=== PATIENT | female | born 1965 | race Caucasian/White ===

== ENCOUNTER 2017-06-21 05:39 | Day surgery (SDC) | payer MEDICAID ==
[2017-06-18 14:18] LABS: BASOPHILS # (AUTO) 0.1 X10'3 (0-0.2); BASOPHILS % (AUTO) 0.6 % (0-1); EOSINOPHILS # (AUTO) 0.1 X10'3 (0-0.9); EOSINOPHILS % (AUTO) 0.8 % (0-6); LYMPHOCYTES # (AUTO) 1.8 X10'3 (1.1-4.8); LYMPHOCYTES % (AUTO) 20.6 % (21-51); MEAN CORPUSCULAR HEMOGLOBIN 31.4 PG (27.0-31.0); MEAN CORPUSCULAR HGB CONC 34.3 % (33.0-36.5); MEAN CORPUSCULAR VOLUME 91.8 FL (78-98); MEAN PLATELET VOLUME 8.5 FL (7.4-10.4); MONOCYTES # (AUTO) 0.5 X10'3 (0-0.9); NEUTROPHILS # (AUTO) 6.1 X10'3 (1.8-7.7); PRE OP HEMATOCRIT 41.4 % (35.0-45.0); PRE OP HEMOGLOBIN 14.2 g/dL (12.0-16.0); PRE OP PLATELET COUNT 310 X10'3 (140-440); RED BLOOD COUNT 4.51 X10'6 (4.20-5.60); RED CELL DISTRIBUTION WIDTH 13.1 % (11.5-14.5)
[2017-06-18 14:28] LABS: PRE OP INR 0.9 INR; PRE OP PROTIME 9.5 SECONDS (9.0-12.0)
[2017-06-18 14:33] LABS: ALBUMIN 3.8 G/DL (3.4-5.0); ALBUMIN/GLOBULIN RATIO 0.9 (1.1-1.5); ALKALINE PHOSPHATASE 61 IU/L (46-116); BLOOD UREA NITROGEN 14 MG/DL (7-18); BUN/CREATININE RATIO 11.1 (6.6-38.0); CALCIUM 9.6 MG/DL (8.5-10.1); CHLORIDE 103 MMOL/L (99-107); CREATININE 1.26 MG/DL (0.40-0.90); PRE OP ALT 33 U/L (30-65); PRE OP ANION GAP 7 (8-16); PRE OP AST 20 U/L (10-37); PRE OP BILIRUB, TOTAL 0.4 MG/DL (0.0-1.0); PRE OP GLUCOSE 107 MG/DL (70-104); PRE OP POTASSIUM 4.2 MMOL/L (3.4-5.1); PRE OP SODIUM 139 MMOL/L (135-145); TOTAL CARBON DIOXIDE 29.5 MMOL/L (24-32); TOTAL PROTEIN 8.2 G/DL (6.4-8.2); eGFR 45 ML/MIN
[~2017-06-21] VITALS: Ht 170.2 cm; Wt 102.1 kg
[~2017-06-21 05:39] MED LIST: ALBU8.5H8 INH; AMLO5TAB4 PO; ASPI-611 PO; ATOR80TA13 PO; BUSP5TAB3 PO; CHOL10002 PO; CLOP75TA15 PO; DOCUMENT DATE & TIME OF BETA-BLOCKER PO ONE; DULO-31 PO; GABA-347 PO; GLIM1TAB46 PO; LOP25T PO; LOSA25TA96 PO; METF500T7 PO; OSC500T PO; albuterol 2.5 MG/3 ML nebule NEB ONE; cefazolin/dext.iso 2gm/50ml 50 ML IV ONE; famotidine 20mg tablet PO ONE; ringers solution, lacted 1,000 ML IV SCH
[2017-06-21] MEDS ORDERED: LIDOcaine 1% (10mg/ml) 2ml vial ONE (06:01)
[2017-06-21 06:24] VITALS: BP 144/86
[2017-06-21] MEDS ORDERED: BUPIVAcaine/PF 2.5 mg/ml (0.25%) 30ml vial ONE ×2 (06:56→08:37)
[2017-06-21] MEDS ORDERED: LIDOcaine 0.5% (5mg/ml) 50ml vial ONE (08:03)
[2017-06-21] MEDS ORDERED: fentaNYL/PF 50MCG/1 ML 2ML syringe ONE (08:05)
[2017-06-21] MEDS ORDERED: midazolam 2 mg/2 ml injection ONE ×2 (08:06→08:11)
[2017-06-21] MEDS ORDERED: propofol inj 20 ML IV ONE (08:42)
[2017-06-21 08:45] VITALS: BP 125/84
[2017-06-21] MEDS ORDERED: ringers solution, lacted 1,000 ML IV SCH (08:47)
[2017-06-21] MEDS ORDERED: ondansetron/PF 4mg/2ml inj IV PRN (08:50)
[2017-06-21] MEDS ORDERED: morphine 4 MG/ML inj SYRINge IV PRN ×2 (08:50)
[2017-06-21] MEDS ORDERED: meperidine/PF 50mg/ml syringe IV PRN ×3 (08:50)
[2017-06-21] MEDS ORDERED: proCHLORperazine 10 MG/2 ml inj IV PRN (08:50)
[2017-06-21 08:55] VITALS: BP 126/79
[2017-06-21 09:05] VITALS: BP 121/77
[2017-06-21 09:15] VITALS: BP 119/78
== END 2017-06-21 09:15 | disposition home or self-care (01) ==
LOC: PAS 05:39
PROVIDERS: ATTEND Orthopaedic Surgery Hand Surgery
DX: G56.01 Carpal tunnel syndrome, right upper limb (principal); G56.21 Lesion of ulnar nerve, right upper limb; F17.210 Nicotine dependence, cigarettes, uncomplicated; G47.33 Obstructive sleep apnea (adult) (pediatric); I48.91 Unspecified atrial fibrillation; I10 Essential (primary) hypertension; I25.2 Old myocardial infarction; F41.9 Anxiety disorder, unspecified; F32.9 Major depressive disorder, single episode, unspecified; E11.9 Type 2 diabetes mellitus without complications; K21.9 Gastro-esophageal reflux disease without esophagitis; M79.7 Fibromyalgia; I25.10 Atherosclerotic heart disease of native coronary artery without angina pectoris; E66.9 Obesity, unspecified; E78.5 Hyperlipidemia, unspecified; J44.9 Chronic obstructive pulmonary disease, unspecified; Z79.82 Long term (current) use of aspirin; Z79.84 Long term (current) use of oral hypoglycemic drugs; Z90.710 Acquired absence of both cervix and uterus; Z95.5 Presence of coronary angioplasty implant and graft; Z88.6 Allergy status to analgesic agent; Z88.5 Allergy status to narcotic agent; Z86.73 Personal history of transient ischemic attack (TIA), and cerebral infarction without residual deficits; Z72.89 Other problems related to lifestyle; Z90.49 Acquired absence of other specified parts of digestive tract; Z90.711 Acquired absence of uterus with remaining cervical stump; Z68.35 Body mass index [BMI] 35.0-35.9, adult; Z79.899 Other long term (current) drug therapy; Z98.890 Other specified postprocedural states
CPT/HCPCS: 36415; 64718; 64721; 80053; 82948; 85025; 85610; 85730; 93005; 94640; A6222; A6449; J0690; J2001; J2250; J2704; J3010; J3490; J7120; A7000

== ENCOUNTER 2017-09-13 06:39 | Day surgery (SDC) | payer MEDICAID ==
[2017-09-10 10:59] LABS: BASOPHILS % (AUTO) 0.3 % (0-1); EOSINOPHILS # (AUTO) 0.2 X10'3 (0-0.9); EOSINOPHILS % (AUTO) 2.2 % (0-6); LYMPHOCYTES # (AUTO) 2.6 X10'3 (1.1-4.8); LYMPHOCYTES % (AUTO) 25.6 % (21-51); MEAN CORPUSCULAR HEMOGLOBIN 31.2 PG (27.0-31.0); MEAN CORPUSCULAR HGB CONC 33.3 % (33.0-36.5); MEAN CORPUSCULAR VOLUME 93.7 FL (78-98); MONOCYTES # (AUTO) 0.5 X10'3 (0-0.9); MONOCYTES % (AUTO) 4.6 % (2-12); NEUTROPHILS # (AUTO) 6.8 X10'3 (1.8-7.7); NEUTROPHILS % (AUTO) 67.3 % (42-75); PRE OP HEMATOCRIT 44.6 % (35.0-45.0); PRE OP HEMOGLOBIN 14.8 g/dL (12.0-16.0); PRE OP PLATELET COUNT 338 X10'3 (140-440); RED BLOOD COUNT 4.76 X10'6 (4.20-5.60)
[2017-09-10 11:15] LABS: ALBUMIN 3.6 G/DL (3.4-5.0); ALBUMIN/GLOBULIN RATIO 0.8 (1.1-1.5); ALKALINE PHOSPHATASE 64 IU/L (46-116); BLOOD UREA NITROGEN 18 MG/DL (7-18); BUN/CREATININE RATIO 12.8 (6.6-38.0); CALCIUM 9.5 MG/DL (8.5-10.1); CHLORIDE 103 MMOL/L (99-107); CREATININE 1.41 MG/DL (0.40-0.90); PRE OP ALT 29 U/L (30-65); PRE OP ANION GAP 7 (8-16); PRE OP AST 14 U/L (10-37); PRE OP BILIRUB, TOTAL 0.3 MG/DL (0.0-1.0); PRE OP GLUCOSE 134 MG/DL (70-104); PRE OP POTASSIUM 4.4 MMOL/L (3.4-5.1); PRE OP SODIUM 140 MMOL/L (135-145); TOTAL CARBON DIOXIDE 30.2 MMOL/L (24-32); TOTAL PROTEIN 8.2 G/DL (6.4-8.2); eGFR 39 ML/MIN
[~2017-09-13] VITALS: Ht 167.6 cm; Wt 102.1 kg
[~2017-09-13 06:39] MED LIST changes: +AMLO5TAB PO; -AMLO5TAB4 PO; +BUSP10TA10 PO; -BUSP5TAB3 PO; -CLOP75TA15 PO; +CLOP75TA33 PO; -GABA-347 PO; +GABA300C PO; +TOPI100T18 PO; -albuterol 2.5 MG/3 ML nebule NEB ONE; +ceFAZolin inj. 2,000 MG in dextrose 5%-water 100 ML IV ONE; -cefazolin/dext.iso 2gm/50ml 50 ML IV ONE
[2017-09-13 06:40] VITALS: BP 150/86
[2017-09-13] MEDS ORDERED: LIDOcaine 1% (10mg/ml) 2ml vial ONE (06:56)
[2017-09-13] MEDS ORDERED: albuterol 2.5 MG/3 ML nebule NEB ONE (07:35)
[2017-09-13] MEDS ORDERED: ROPIVAcaine 0.5% (5mg/ml) 30ml vial ONE (08:24)
[2017-09-13] MEDS ORDERED: LIDOcaine 0.5% (5mg/ml) 50ml vial ONE (08:28)
[2017-09-13] MEDS ORDERED: MIDAZolam 1mg/ml 10ml vial ONE (08:33)
[2017-09-13] MEDS ORDERED: sevoflurane 250ml liquid IH ONE (09:10)
[2017-09-13] MEDS ORDERED: fentaNYL/PF 50MCG/1 ML 2ML syringe ONE (09:36)
[2017-09-13] MEDS ORDERED: rocuronium 10mg/ml inj IV ONE (09:46)
[2017-09-13] MEDS ORDERED: propofol inj 20 ML IV ONE (09:46)
[2017-09-13] MEDS ORDERED: glycopyrrolate 0.2mg/ml inj ONE (09:47)
[2017-09-13] MEDS ORDERED: neostigmine methylsulfate 1 MG/ML 10ml vial ONE (09:47)
[2017-09-13] MEDS ORDERED: ondansetron/PF 4mg/2ml inj ONE (09:54)
[2017-09-13 10:05] VITALS: BP 119/89
[2017-09-13 10:15] VITALS: BP 117/74
[2017-09-13 10:25] VITALS: BP 112/67
[2017-09-13] MEDS ORDERED: ringers solution, lacted 1,000 ML IV ONE (10:28)
[2017-09-13] MEDS ORDERED: hydrALAZINE 20mg/ml inj. IV PRN (10:30)
[2017-09-13] MEDS ORDERED: labetalol 20mg/4ml (5mg/ml) syringe IV PRN (10:30)
[2017-09-13] MEDS ORDERED: morphine 4 MG/ML inj SYRINge IV PRN ×2 (10:30)
[2017-09-13] MEDS ORDERED: ondansetron/PF 4mg/2ml inj IV PRN (10:30)
[2017-09-13] MEDS ORDERED: meperidine/PF 25mg/ml syringe IV PRN ×3 (10:30)
[2017-09-13 10:35] VITALS: BP 110/55
[2017-09-13 10:45] VITALS: BP 115/64
== END 2017-09-13 10:55 | disposition home or self-care (01) ==
LOC: PAS 06:39
PROVIDERS: ATTEND Orthopaedic Surgery Hand Surgery
DX: G56.02 Carpal tunnel syndrome, left upper limb (principal); G56.22 Lesion of ulnar nerve, left upper limb; J44.9 Chronic obstructive pulmonary disease, unspecified; G47.33 Obstructive sleep apnea (adult) (pediatric); I25.2 Old myocardial infarction; I49.8 Other specified cardiac arrhythmias; I25.10 Atherosclerotic heart disease of native coronary artery without angina pectoris; E66.9 Obesity, unspecified; E78.5 Hyperlipidemia, unspecified; F17.210 Nicotine dependence, cigarettes, uncomplicated; M79.7 Fibromyalgia; I12.9 Hypertensive chronic kidney disease with stage 1 through stage 4 chronic kidney disease, or unspecified chronic kidney disease; N18.9 Chronic kidney disease, unspecified; E11.22 Type 2 diabetes mellitus with diabetic chronic kidney disease; F32.9 Major depressive disorder, single episode, unspecified; F41.9 Anxiety disorder, unspecified; Z86.74 Personal history of sudden cardiac arrest; Z95.5 Presence of coronary angioplasty implant and graft; Z86.73 Personal history of transient ischemic attack (TIA), and cerebral infarction without residual deficits; Z87.11 Personal history of peptic ulcer disease; Z90.49 Acquired absence of other specified parts of digestive tract; Z79.82 Long term (current) use of aspirin; Z79.84 Long term (current) use of oral hypoglycemic drugs; Z98.2 Presence of cerebrospinal fluid drainage device; Z88.5 Allergy status to narcotic agent; Z88.6 Allergy status to analgesic agent; Z72.89 Other problems related to lifestyle; Z90.711 Acquired absence of uterus with remaining cervical stump; Z98.890 Other specified postprocedural states; Z79.899 Other long term (current) drug therapy; Z68.36 Body mass index [BMI] 36.0-36.9, adult
CPT/HCPCS: 36415; 64718; 64721; 80053; 82948; 85025; 93005; 94640; 94760; A6222; A6449; J0690; J2001; J2250; J2405; J2704; J2710; J2795; J3010; J3490; J7060; J7120

== ENCOUNTER 2019-02-16 14:16 | Emergency (ER) | payer MEDICAID ==
[~2019-02-16] VITALS: Ht 167.6 cm; Wt 94.1 kg
[~2019-02-16 14:16] MED LIST changes: -DOCUMENT DATE & TIME OF BETA-BLOCKER PO ONE; +GLIM1TAB3 PO; -GLIM1TAB46 PO; +METF500T20 PO; -METF500T7 PO; +TOP100T PO; -TOPI100T18 PO; -ceFAZolin inj. 2,000 MG in dextrose 5%-water 100 ML IV ONE; -famotidine 20mg tablet PO ONE; -ringers solution, lacted 1,000 ML IV SCH
[2019-02-16 14:57] LABS: BASOPHILS # (AUTO) 0.1 X10'3 (0-0.2); BASOPHILS % (AUTO) 0.7 % (0-1); EOSINOPHILS # (AUTO) 0.4 X10'3 (0-0.9); HEMATOCRIT 42.8 % (35.0-45.0); HEMOGLOBIN 14.4 g/dl (12.0-16.0); LYMPHOCYTES # (AUTO) 3.2 X10'3 (1.1-4.8); LYMPHOCYTES % (AUTO) 37.7 % (21-51); MEAN CORPUSCULAR HEMOGLOBIN 31.7 PG (27.0-31.0); MEAN CORPUSCULAR HGB CONC 33.6 g/dL (33.0-36.5); MEAN CORPUSCULAR VOLUME 94.1 FL (78-98); MEAN PLATELET VOLUME 9.2 FL (7.4-10.4); MONOCYTES # (AUTO) 0.4 X10'3 (0-0.9); MONOCYTES % (AUTO) 4.9 % (2-12); NEUTROPHILS # (AUTO) 4.3 X10'3 (1.8-7.7); NEUTROPHILS % (AUTO) 51.7 % (42-75); PLATELET COUNT 319 X10'3 (140-440); RED BLOOD COUNT 4.55 X10'6 (4.20-5.60); RED CELL DISTRIBUTION WIDTH 13.2 % (11.5-14.5); WHITE BLOOD COUNT 8.4 X10'3 (4.5-11.0)
[2019-02-16 15:17] LABS: ALANINE AMINOTRANSFERASE 75 U/L (12-78); ALBUMIN 3.6 G/DL (3.4-5.0); ALBUMIN/GLOBULIN RATIO 0.8 (1.1-1.5); ALKALINE PHOSPHATASE 57 IU/L (46-116); ANION GAP 7 (8-16); ASPARTATE AMINO TRANSFERASE 44 U/L (10-37); BILIRUBIN,TOTAL 0.3 MG/DL (0.1-1.0); BLOOD UREA NITROGEN 24 MG/DL (7-18); BUN/CREATININE RATIO 15.7 (6.6-38.0); CALCIUM 9.1 MG/DL (8.5-10.1); CHLORIDE 100 MMOL/L (99-107); CREATININE 1.53 MG/DL (0.40-0.90); GLUCOSE 119 MG/DL (70-104); POTASSIUM 3.6 MMOL/L (3.5-5.1); SODIUM 141 MMOL/L (135-145); TOTAL CARBON DIOXIDE 34.3 MMOL/L (24-32); TOTAL PROTEIN 7.9 G/DL (6.4-8.2); eGFR 36 ML/MIN
[2019-02-16] MEDS ORDERED: normal saline 1000ML IV soln IVB ONE (15:30)
[2019-02-16 16:54] VITALS: BP 143/85
--- NOTE | 2019-02-16 17:08 | NUR ---
orthostatic vitals done and reported to pa
== END 2019-02-16 17:55 | disposition home or self-care (01) ==
LOC: ER 14:17
DX: I95.1 Orthostatic hypotension (principal); R42 Dizziness and giddiness; I44.7 Left bundle-branch block, unspecified; I12.9 Hypertensive chronic kidney disease with stage 1 through stage 4 chronic kidney disease, or unspecified chronic kidney disease; E11.22 Type 2 diabetes mellitus with diabetic chronic kidney disease; N18.3 Chronic kidney disease, stage 3 (moderate); E11.42 Type 2 diabetes mellitus with diabetic polyneuropathy; I25.10 Atherosclerotic heart disease of native coronary artery without angina pectoris; I25.2 Old myocardial infarction; J44.9 Chronic obstructive pulmonary disease, unspecified; K21.9 Gastro-esophageal reflux disease without esophagitis; M19.90 Unspecified osteoarthritis, unspecified site; G89.29 Other chronic pain; F41.9 Anxiety disorder, unspecified; F32.9 Major depressive disorder, single episode, unspecified; Z86.73 Personal history of transient ischemic attack (TIA), and cerebral infarction without residual deficits; Z90.49 Acquired absence of other specified parts of digestive tract; Z90.710 Acquired absence of both cervix and uterus; Z98.890 Other specified postprocedural states; Z95.5 Presence of coronary angioplasty implant and graft; Z56.0 Unemployment, unspecified; Z88.5 Allergy status to narcotic agent; Z79.82 Long term (current) use of aspirin; Z79.84 Long term (current) use of oral hypoglycemic drugs; Z79.899 Other long term (current) drug therapy
CPT/HCPCS: 36415; 80053; 85025; 93005; 96360; 99284; J7030

== ENCOUNTER 2019-06-08 12:57 | Emergency (ER) | payer MEDICAID ==
[~2019-06-08] VITALS: Ht 167.6 cm; Wt 56.7 kg
[~2019-06-08 12:57] MED LIST changes: +AMA1T PO; -GLIM1TAB3 PO
[2019-06-08] MEDS ORDERED: IBUP-1984 PO (13:49)
[2019-06-08] MEDS ORDERED: AMOX500C2 PO (13:49)
[2019-06-08 13:58] VITALS: BP 166/80
== END 2019-06-08 14:00 | disposition home or self-care (01) ==
LOC: ER 12:58
DX: R22.0 Localized swelling, mass and lump, head (principal); E11.42 Type 2 diabetes mellitus with diabetic polyneuropathy; I25.10 Atherosclerotic heart disease of native coronary artery without angina pectoris; I10 Essential (primary) hypertension; I25.2 Old myocardial infarction; J44.9 Chronic obstructive pulmonary disease, unspecified; K21.9 Gastro-esophageal reflux disease without esophagitis; M19.90 Unspecified osteoarthritis, unspecified site; G89.29 Other chronic pain; F41.9 Anxiety disorder, unspecified; F32.9 Major depressive disorder, single episode, unspecified; Z98.61 Coronary angioplasty status; Z90.710 Acquired absence of both cervix and uterus; Z90.49 Acquired absence of other specified parts of digestive tract; Z98.890 Other specified postprocedural states; Z56.0 Unemployment, unspecified; Z88.5 Allergy status to narcotic agent; Z79.82 Long term (current) use of aspirin; Z79.899 Other long term (current) drug therapy
CPT/HCPCS: 99283

== ENCOUNTER 2019-12-28 14:22 | Emergency (ER) | payer MEDICAID ==
[~2019-12-28] VITALS: Ht 167.6 cm; Wt 95.9 kg
[~2019-12-28 14:22] MED LIST changes: +METF-900 PO; -METF500T20 PO
[2019-12-28] MEDS ORDERED: AZIT250T2 PO (14:37)
[2019-12-28] MEDS ORDERED: ALBU6.7H9 INH (14:37)
[2019-12-28] MEDS ORDERED: FLUT1DIS20 INH (14:37)
[2019-12-28] MEDS ORDERED: PRED20TA PO (14:37)
[2019-12-28] MEDS ORDERED: ALB0.5UD IH (14:37)
[2019-12-28 15:04] VITALS: BP 105/78
== END 2019-12-28 15:01 | disposition home or self-care (01) ==
LOC: ER 14:22
DX: J44.9 Chronic obstructive pulmonary disease, unspecified (principal); Z20.828 Contact with and (suspected) exposure to other viral communicable diseases; R19.7 Diarrhea, unspecified; E11.42 Type 2 diabetes mellitus with diabetic polyneuropathy; I25.10 Atherosclerotic heart disease of native coronary artery without angina pectoris; I10 Essential (primary) hypertension; I25.2 Old myocardial infarction; K21.9 Gastro-esophageal reflux disease without esophagitis; M19.90 Unspecified osteoarthritis, unspecified site; G89.29 Other chronic pain; F41.9 Anxiety disorder, unspecified; F32.9 Major depressive disorder, single episode, unspecified; Z86.14 Personal history of Methicillin resistant Staphylococcus aureus infection; Z90.49 Acquired absence of other specified parts of digestive tract; Z90.710 Acquired absence of both cervix and uterus; Z86.73 Personal history of transient ischemic attack (TIA), and cerebral infarction without residual deficits; Z98.890 Other specified postprocedural states; Z56.0 Unemployment, unspecified; Z88.5 Allergy status to narcotic agent; Z79.899 Other long term (current) drug therapy
CPT/HCPCS: 36415; 71045; 87635; 99284

== ENCOUNTER 2021-02-11 15:11 | Emergency (ER) | payer MEDICAID ==
[~2021-02-11] VITALS: Ht 167.6 cm; Wt 93.2 kg
[~2021-02-11 15:11] MED LIST changes: +ALBU6.7H9 INH; +ALBU8.5H17 INH; -ALBU8.5H8 INH; +FLUT1DIS20 INH
[2021-02-11] MEDS ORDERED: normal saline 1000ML IV soln IVB ONE ×2 (15:45→16:50)
[2021-02-11 15:55] LABS: BASOPHILS # (AUTO) 0.1 X10'3 (0-0.2); EOSINOPHILS # (AUTO) 0.2 X10'3 (0-0.9); EOSINOPHILS % (AUTO) 1.8 % (0-6); HEMATOCRIT 41.1 % (35.0-45.0); HEMOGLOBIN 14.4 g/dl (12.0-16.0); LYMPHOCYTES # (AUTO) 3.2 X10'3 (1.1-4.8); MEAN CORPUSCULAR HEMOGLOBIN 31.2 PG (27.0-31.0); MEAN CORPUSCULAR VOLUME 89.1 FL (78-98); MEAN PLATELET VOLUME 9.6 FL (7.4-10.4); MONOCYTES # (AUTO) 0.4 X10'3 (0-0.9); MONOCYTES % (AUTO) 4.5 % (2-12); NEUTROPHILS # (AUTO) 5.8 X10'3 (1.8-7.7); NEUTROPHILS % (AUTO) 59.7 % (42-75); PLATELET COUNT 363 X10'3 (140-440); RED BLOOD COUNT 4.61 X10'6 (4.20-5.60); RED CELL DISTRIBUTION WIDTH 13.4 % (11.5-14.5); WHITE BLOOD COUNT 9.8 X10'3 (4.5-11.0)
[2021-02-11 16:05] LABS: ALANINE AMINOTRANSFERASE 50 U/L (12-78); ALBUMIN 3.8 G/DL (3.4-5.0); ALBUMIN/GLOBULIN RATIO 0.8 (1.1-1.5); ALKALINE PHOSPHATASE 80 IU/L (46-116); ANION GAP 12 (8-16); BILIRUBIN,TOTAL 0.4 MG/DL (0.1-1.0); BLOOD UREA NITROGEN 25 MG/DL (7-18); BUN/CREATININE RATIO 16.4 (6.6-38.0); CALCIUM 9.3 MG/DL (8.5-10.1); CHLORIDE 93 MMOL/L (99-107); CREATININE 1.52 MG/DL (0.40-0.90); GLUCOSE 429 MG/DL (70-104); SODIUM 133 MMOL/L (135-145); TOTAL CARBON DIOXIDE 28.2 MMOL/L (24-32); TOTAL PROTEIN 8.5 G/DL (6.4-8.2); eGFR 36 ML/MIN
[2021-02-11 16:06] LABS: ASPARTATE AMINO TRANSFERASE 46 U/L (10-37); POTASSIUM 4.3 MMOL/L (3.5-5.1)
[2021-02-11 17:18] LABS: CLARITY,URINE SLIGHTLY CLOUDY (Clear); COLOR,URINE YELLOW (Yellow); GLUCOSE, URINE >=1000 mg/dl (Neg); KETONES,URINE TRACE mg/dl (Neg); PROTEIN,URINE NEGATIVE (Neg); UA COLLECTION TYPE VOIDED
[2021-02-11 17:19] LABS: LEUKOCYTE ESTERASE ,URINE NEGATIVE (Neg); NITRITES, URINE POSITIVE (Neg); OCCULT BLOOD,URINE NEGATIVE (Neg); UROBILINOGEN,URINE 0.2 E.U/dL (0.2-1.0)
[2021-02-11 17:25] LABS: BACTERIA,URINE 4+ /HPF (Neg); MUCUS STRANDS FEW /LPF (Neg); RBC,URINE 0-2 /HPF (0-2); SQUAMOUS EPITHELIAL CELL,UR MODERATE /LPF (FEW)
[2021-02-11] MEDS ORDERED: CEPH-585 PO (18:19)
[2021-02-11] MEDS ORDERED: CefTRIAXone 2gm/D5W 50ml BAG 50 ML IV ONE (18:20)
[2021-02-11 18:46] VITALS: BP 143/87
== END 2021-02-11 19:32 | disposition home or self-care (01) ==
LOC: ER 15:12
DX: E11.65 Type 2 diabetes mellitus with hyperglycemia (principal); N39.0 Urinary tract infection, site not specified; I12.0 Hypertensive chronic kidney disease with stage 5 chronic kidney disease or end stage renal disease; N18.9 Chronic kidney disease, unspecified; I25.10 Atherosclerotic heart disease of native coronary artery without angina pectoris; I25.2 Old myocardial infarction; J44.9 Chronic obstructive pulmonary disease, unspecified; K21.9 Gastro-esophageal reflux disease without esophagitis; G89.29 Other chronic pain; E11.43 Type 2 diabetes mellitus with diabetic autonomic (poly)neuropathy; Z86.73 Personal history of transient ischemic attack (TIA), and cerebral infarction without residual deficits; Z86.14 Personal history of Methicillin resistant Staphylococcus aureus infection; Z87.11 Personal history of peptic ulcer disease; Z90.710 Acquired absence of both cervix and uterus; Z90.49 Acquired absence of other specified parts of digestive tract; Z56.0 Unemployment, unspecified; Z88.8 Allergy status to other drugs, medicaments and biological substances; Z79.2 Long term (current) use of antibiotics; Z79.899 Other long term (current) drug therapy
CPT/HCPCS: 36415; 71045; 80053; 81001; 82948; 83605; 85025; 87077; 87088; 87186; 96361; 96365; 99284; J0696; J7030

== ENCOUNTER 2021-06-22 14:52 | Emergency (ER) | payer MEDICAID ==
[~2021-06-22] VITALS: Ht 167.6 cm; Wt 97.3 kg
[~2021-06-22 14:52] MED LIST changes: +CEPH-585 PO
--- NOTE | 2021-06-22 15:08 | NUR ---
Dr Abrams at bedside, C-collar removed by
[2021-06-22 17:04] VITALS: BP 145/89
== END 2021-06-22 17:07 | disposition home or self-care (01) ==
LOC: ER 14:52
DX: M25.552 Pain in left hip (principal); M54.2 Cervicalgia; R42 Dizziness and giddiness; E11.42 Type 2 diabetes mellitus with diabetic polyneuropathy; I25.10 Atherosclerotic heart disease of native coronary artery without angina pectoris; I10 Essential (primary) hypertension; I25.2 Old myocardial infarction; J44.9 Chronic obstructive pulmonary disease, unspecified; M19.90 Unspecified osteoarthritis, unspecified site; G89.29 Other chronic pain; F41.9 Anxiety disorder, unspecified; F32.A Depression, unspecified; F17.210 Nicotine dependence, cigarettes, uncomplicated; Z87.11 Personal history of peptic ulcer disease; Z86.73 Personal history of transient ischemic attack (TIA), and cerebral infarction without residual deficits; Z86.14 Personal history of Methicillin resistant Staphylococcus aureus infection; Z90.49 Acquired absence of other specified parts of digestive tract; Z90.710 Acquired absence of both cervix and uterus; Z98.890 Other specified postprocedural states; Z56.0 Unemployment, unspecified; Z88.5 Allergy status to narcotic agent; Z88.1 Allergy status to other antibiotic agents; Z88.8 Allergy status to other drugs, medicaments and biological substances; Z79.82 Long term (current) use of aspirin; Z79.2 Long term (current) use of antibiotics; Z79.899 Other long term (current) drug therapy; W19.XXXA Unspecified fall, initial encounter; Y93.89 Activity, other specified; Y92.89 Other specified places as the place of occurrence of the external cause; Y99.8 Other external cause status
CPT/HCPCS: 72040; 73502; 99284